=== PATIENT | male | born 1985 | race Caucasian/White ===

== ENCOUNTER 2016-06-10 07:24 | Day surgery (SDC) | payer OTHER ==
[2016-06-10] VITALS (13 sets, daily range): BP systolic 101–150; BP diastolic 41–80; PULSE 64–82; RESP 13–29; O2SAT 95–98
[~2016-06-10] VITALS: Ht 193 cm; Wt 111.3 kg
[~2016-06-10 07:24] MED LIST: CeFAZolin 2 Gm/50 mL D5W IV Premix IV ONE
[2016-06-10] MEDS ORDERED: MetoCLOpramide 5 mg/mL 2 mL Inj ONE (07:25)
[2016-06-10] MEDS ORDERED: fentaNYL-PF 50 mCg/mL 2 mL Inj ONE (07:25)
[2016-06-10] MEDS ORDERED: Ondansetron 2 mg/mL 2 mL Inj ONE (07:25)
[2016-06-10] MEDS ORDERED: Succinylcholine Chloride 20 mg/mL 5 mL Inj ONE (07:25)
[2016-06-10] MEDS ORDERED: Propofol 10,000 mCg/mL 20 mL Inj ONE (07:25)
[2016-06-10] MEDS: Lactated Ringer's 1,000 ML IV SCH ×2 (07:43→12:15)
[2016-06-10] MEDS ORDERED: CeFAZolin Inj 2 gm / 50mL D5W IV ONE (07:50)
[2016-06-10] MEDS ORDERED: CALC-140 PO (07:53)
[2016-06-10] MEDS ORDERED: GLUC500T12 PO (07:53)
[2016-06-10] MEDS ORDERED: OMEG500C PO (07:53)
--- NOTE | 2016-06-10 08:18 | PCM.HPANE ---
Patient Data Date of Service: Jun 10, 2016 Surgeon Admitting Provider: Attending Provider:Aj Nair MD Primary Care Physician:Steph Other Provider:Israel Lovelace Anesthesia Reason for Visit Left Rotator Cuff Tear Ht/WT & BMI Height (Feet): 6 Height (Inches): 4 Weight (Kilograms): 111.76 Body Mass Index 30.00 Allergies Coded Allergies: No Known Allergies (Unverified , 06/06/16) Past Anesthesia History Anesthesia History: Denies:: Abnormal Airway, Anesthesia Reactions, Difficult Intubation, Fam Anesthesia Reaction Diabetes History Hx Diabetes?: No MRSA MRSA: No Medications Hypertension Medication: No Home Meds Incl Beta Hoang: No Reported Medications [place]-3 Fatty Acids (Fish Oil)500 Mg Capsule.dr500 Mg PO 06/10/16 Glucosamine 500 Mg [id number] Mg PO 06/10/16 Calcium Carbonate/Vitamin D3 (Calcium + Vitamin D Tablet)1 Each Tablet1 Each PO 06/10/16 History HEENT History: Denies:: Abnormal Airway Cataracts Difficult Intubation Dysphagia Glaucoma Hearing Problem Sinus Problem TMJ Cardiovascular History: Denies:: AICD Abdominal Aortic Aneurism Cardiac Surgery Chest Pain Congestive Heart Failure Coronary Artery Disease Edema Heart Murmur Hypertension Irregular Heartbeat Pacemaker Hx of Respiratory Problem?: No Respiratory History: Denies:: Asthma COPD Emphysema Oxygen Administration Pneumonia Tuberculosis Use of C-PAP Machine Use of Inhalers / NEBS Hx Neurologic Problems?: No Neurological History: Denies:: Alzheimer's Disease CVA Headaches Multiple Sclerosis Parkinson's Disease Seizures TIA Hx of GI Problems?: No Gastrointestinal History: Denies:: Cirrhosis Gall Bladder Disease Gastroesphageal Reflux Gastrointestinal Bleeding Heartburn Hepatitis Hiatal Hernia Liver Disease Rectal Bleeding Hx of Problems?: No Genitourinary History: Denies:: Kidney Stones Urinary Tract Infection Male Hx: Denies:: Prostate Problems Skin History: Denies:: History Skin Disorders? Pressure Ulcers Hx Musculoskeletal Problems?: Yes Musculoskeletal History: Positive for:: Musculoskeletal Trauma (left shoulder current admission problem) Denies:: Back Injury Fibromyalgia Joint Replacement Osteoarthritis Hx of Psycho/Social Problems?: No Psycho Social History: Denies:: Anxiety Hx Depression Hx Surgeries?: Yes (left knee meniscus) Hx Any Other Health Problems?: Yes Other History: Denies:: Cancer Thyroid Disease History Blood Transfusions: Positive for:: Accept Blood Products? Denies:: Blood Transfusions Hx Diabetes: No Hx Alcohol Use: YesAlcoholic Drinks Per Day: 3-4 drinks monthlyHx Substance Use: NoHave You Smoked inLast 12 mo: No Stop/Bang S-Snoring: Do You Snore Loudly: No T-Tired: feel tired, fatigued: No O-Obsered: Observed not breath: No P-Blood Pressure: treated: No B- Body Mass Index > 35 kg/m2: No A- Age over 50: No N- Neck Large Circumference: No G- Gender Male: Yes RIGOBERTO Total Score: 1 RIGOBERTO Risk Assessment: Low Risk, <3 Yes Risk Assessment Category Category 1A: Patient has history of documented sleep apnea, and HAS NOT received any narcotic, sedative or anesthesia administration during this stay. Category 1B: Patient has history of documented sleep apnea, and HAS received any narcotic , sedative or anesthesia administration during this stay Category 2: Patient has SUSPECTED Obstructive Sleep Apnea, and HAS received any narcotic , sedative or anesthesia administration during this stay. Category 3: Patient has SUSPECTED Obstructive Sleep Apnea and HAS NOT received narcotic, sedative or anesthesia administration during this stay. Category 4: Outpatient in Procedural Areas with known sleep apnea or who screen positive for High Risk via the STOP/BANG questionnaire. Exam Exam General Appearance: Alert, Oriented X3, Cooperative, No Acute Distress HEENT/AIRWAY: MP 1, Neck Movement (FROM), Mouth Opening (>3), Other (tmd>3) Lungs: Clear to Auscultation, Normal Air Movement Heart: Exam Unremarkable, Regular Rate/Rhythm, Normal S1, Normal S2, No Murmurs /Rubs/Gallops Meds/Labs/Diagnostics Admission Meds Current Medications Lactated Ringer's (Lr) 1,000 ml @ 120 mls/hr Q8H20M IV Last administered on 07:43; Start 06/10/16 at 05:00; Stop 06/10/16 at 13:19 Plan Impression Patient chart reviewed, patient interviewed and anesthestic plan with risks, benefits, and alternatives discussed, and informed consent obtained. ASA Physical Status: ASA1 Normal Healthy Anesthetic Plan: GA Bene/Risks/Altern/Consents: Yes HP Complete Prior to Induction: Yes Other Left brachial plexus block request by surgeon for post-op pain. Juan M Andrew MD Jun 10, 2016 08:18
--- NOTE | 2016-06-10 10:30 | PCM.HPANE ---
Patient Data Surgeon Admitting Provider: Attending Provider:Aj Nair MD Primary Care Physician:Steph Other Provider:Israel Lovelace Anesthesia Reason for Visit Left Rotator Cuff Tear Ht/WT & BMI Height (Feet): 6 Height (Inches): 4.00 Weight (Kilograms): 111.3 Body Mass Index 29.00 Allergies Coded Allergies: No Known Allergies (Unverified , 06/06/16) Past Anesthesia History Anesthesia History: Denies:: Abnormal Airway, Anesthesia Reactions, Difficult Intubation, Fam Anesthesia Reaction Diabetes History Hx Diabetes?: No MRSA MRSA: No Medications Hypertension Medication: No Home Meds Incl Beta Hoang: No Reported Medications [place]-3 Fatty Acids (Fish Oil)500 Mg Capsule.dr500 Mg PO 06/10/16 Glucosamine 500 Mg [id number] Mg PO 06/10/16 Calcium Carbonate/Vitamin D3 (Calcium + Vitamin D Tablet)1 Each Tablet1 Each PO 06/10/16 History HEENT History: Denies:: Abnormal Airway Cataracts Difficult Intubation Dysphagia Glaucoma Hearing Problem Sinus Problem TMJ Cardiovascular History: Denies:: AICD Abdominal Aortic Aneurism Cardiac Surgery Chest Pain Congestive Heart Failure Coronary Artery Disease Edema Heart Murmur Hypertension Irregular Heartbeat Pacemaker Hx of Respiratory Problem?: No Respiratory History: Denies:: Asthma COPD Emphysema Oxygen Administration Pneumonia Tuberculosis Use of C-PAP Machine Use of Inhalers / NEBS Hx Neurologic Problems?: No Neurological History: Denies:: Alzheimer's Disease CVA Headaches Multiple Sclerosis Parkinson's Disease Seizures TIA Hx of GI Problems?: No Gastrointestinal History: Denies:: Cirrhosis Gall Bladder Disease Gastroesphageal Reflux Gastrointestinal Bleeding Heartburn Hepatitis Hiatal Hernia Liver Disease Rectal Bleeding Hx of Problems?: No Genitourinary History: Denies:: Kidney Stones Urinary Tract Infection Male Hx: Denies:: Prostate Problems Skin History: Denies:: History Skin Disorders? Pressure Ulcers Hx Musculoskeletal Problems?: Yes Musculoskeletal History: Positive for:: Musculoskeletal Trauma (left shoulder current admission problem) Denies:: Back Injury Fibromyalgia Joint Replacement Osteoarthritis Hx of Psycho/Social Problems?: No Psycho Social History: Denies:: Anxiety Hx Depression Hx Surgeries?: Yes (left knee meniscus) Hx Any Other Health Problems?: Yes Other History: Denies:: Cancer Thyroid Disease History Blood Transfusions: Positive for:: Accept Blood Products? Denies:: Blood Transfusions Hx Diabetes: No Hx Alcohol Use: YesAlcoholic Drinks Per Day: 3-4 drinks monthlyHx Substance Use: NoHave You Smoked inLast 12 mo: No Stop/Bang Treated for Sleep Apnea?: No Do You Have a CPAP Machine?: No S-Snoring: Do You Snore Loudly: No T-Tired: feel tired, fatigued: No O-Obsered: Observed not breath: No P-Blood Pressure: treated: No B- Body Mass Index > 35 kg/m2: No A- Age over 50: No N- Neck Large Circumference: No G- Gender Male: Yes RIGOBERTO Total Score: 1 RIGOBERTO Risk Assessment: Low Risk, <3 Yes Risk Assessment Category Category 1A: Patient has history of documented sleep apnea, and HAS NOT received any narcotic, sedative or anesthesia administration during this stay. Category 1B: Patient has history of documented sleep apnea, and HAS received any narcotic , sedative or anesthesia administration during this stay Category 2: Patient has SUSPECTED Obstructive Sleep Apnea, and HAS received any narcotic , sedative or anesthesia administration during this stay. Category 3: Patient has SUSPECTED Obstructive Sleep Apnea and HAS NOT received narcotic, sedative or anesthesia administration during this stay. Category 4: Outpatient in Procedural Areas with known sleep apnea or who screen positive for High Risk via the STOP/BANG questionnaire. Low Risk, <3 Yes Exam Exam Vital Signs Vital Signs Date Time Temp Pulse Resp B/P Pulse Ox O2 Delivery O2 Flow Rate FiO2 06/10/16 08:45 36.6 74 18 150/80 97 Room Air General Appearance: Oriented X3 HEENT/AIRWAY: MP 2 Lungs: Normal Air Movement Heart: Regular Rate/Rhythm Meds/Labs/Diagnostics Admission Meds Current Medications Lactated Ringer's (Lr) 1,000 ml @ 120 mls/hr Q8H20M IV Last administered on t 07:43; Start 06/10/16 at 05:00; Stop 06/10/16 at 13:19 Plan Impression Patient chart reviewed, patient interviewed and anesthestic plan with risks, benefits, and alternatives discussed, and informed consent obtained. NPO Status: water at 0530 ASA Physical Status: ASA1 Normal Healthy Anesthetic Plan: GA Bene/Risks/Altern/Consents: Yes HP Complete Prior to Induction: Yes Kailash Perez MD Jun 10, 2016 10:30
[2016-06-10] MEDS ORDERED: Ketorolac 15 mg/mL Inj IVPUSH ONE (10:40)
[2016-06-10] MEDS ORDERED: HYDROcodone-APAP 5-325 mg Tablet PO PRN (10:40)
[2016-06-10] MEDS ORDERED: Lactated Ringer's 500 ML IV PRN (11:10)
[2016-06-10] MEDS ORDERED: Phenylephrine 10,000 mCg/mL Inj IVPUSH PRN (11:10)
[2016-06-10] MEDS ORDERED: HYDROmorphone 1 mg/mL Inj IVPUSH PRN (11:10)
[2016-06-10] MEDS ORDERED: Lactated Ringer's 1,000 ML IV SCH (11:10)
[2016-06-10] MEDS ORDERED: Ondansetron 2 mg/mL 2 mL Inj IVPUSH PRN (11:10)
[2016-06-10] MEDS ORDERED: EPHEDrine Sulfate 50 mg/mL Inj IVPUSH PRN (11:10)
[2016-06-10] MEDS ORDERED: MetoCLOpramide 5 mg/mL 2 mL Inj IVPUSH PRN (11:10)
[2016-06-10] MEDS ORDERED: Labetalol 5 mg/mL 4 mL Inj IV PRN (11:10)
[2016-06-10] MEDS ORDERED: fentaNYL-PF 50 mCg/mL 2 mL Inj IVPUSH PRN (11:10)
[2016-06-10] MEDS ORDERED: Dexamethasone 4 mg/mL Inj IVPUSH PRN (11:10)
[2016-06-10] MEDS ORDERED: Ropivacaine-PF 0.5% 30 mL Inj INFILTRATE ONE (12:52)
[2016-06-10] MEDS ORDERED: Lactated Ringer's 1,000 ML IV ONE (12:52)
--- NOTE | 2016-06-10 12:52 | PCM.ORTHOP ---
Orthopedic Operative Report Date of Service: Jun 10, 2016 Pre Operative Diagnosis Left shoulder rotator cuff Post Operative Diagnosis Left shoulder rotator cuff tear Procedure Left shoulder arthroscopy, rotator cuff repair, partial synovectomy Surgeon Surgeon: Aj Nair MD Assistants: Gisele Tellez Indication for Procedure Left shoulder rotator cuff tear Findings Partially torn full-thickness subscapularis tear, moderate synovitis Details of Procedure EXCAVATOR OPERATOR SURGEON: During the operation, the services of physician life enrichment assistant were medically indicated and necessary to provide exposure of the operative site for the surgical procedure and to maintain the limb in a proper position to carry out the operation safely and efficiently. Without the qualified laboratory chemical assistant being present, it would have extended the operative procedure and made the procedure technically more difficult to perform. INDICATIONS: The patient is Manpreet Mcgowan who is a 31-year-old male with left subscapularis tear after weightlifting. He is failed conservative treatment and elected for subscapularis repair. The risks, benefits, and alternatives of surgery were discussed with the patient. The risks included but were not limited to infection, bleeding, damage to vessels and nerves, loss of motion, continued pain, complications due to anesthesia including myocardial infarction , stroke, , etc. The patient stated understanding of the nature of the surgical procedure and gave written and verbal consent to proceed. PROCEDURE: The patient was brought into the operating room and placed supine on the operating room table. A supraclavicular block was placed in the left shoulder for postoperative pain management, followed by the administration of general anesthesia. . The patient was then placed into the lateral decubitus position with the right side up. An axillary role was placed and the legs were padded as necessary to avoid pressure points. The patient was maintained in position with a beanbag evacuation device. A thorough examination of the left shoulder under anesthesia was performed. The patient had 150 degrees of forward elevation and 120 degrees of abduction. In 90 degrees of abduction there was 60 degrees of external rotation and 50 degrees of internal rotation. The shoulder was stable to load-shift testing. The left upper extremity was then prepped and draped in the usual fashion. The arm was suspended with a well-padded sleeve with eight/ten pounds of balanced suspension in the arthroscopic position. Removing A standard posterior portal was made inferior and medial to the posterior corner of the acromion. The incision was made only through skin. The trocar was advanced through the soft tissue with a blunt-tipped obturator. This was inserted into the glenohumeral joint without difficulty. The 4 mm arthroscope was placed through the cannula and attached to the video monitor system. Inflow was achieved using the arthroscopic pump. The pressure was maintained at 35-40 mm of mercury throughout the entire procedure. Once the arthroscope confirmed visualization within the shoulder joint, it was advanced anteriorly into the rotator interval beneath the biceps tendon. A Wissinger bernard was then used to create the anterior portal from inside-out. A second anterior stab wound incision was made only through skin and an anterior cannula was placed. A routine arthroscopic survey was begun. Survey: Full-thickness superior portion of the subscapularis torn with partial tearing of the inferior portion The arm was then placed in the bursoscopy position. Complex surgical procedure: This was an extremely complex surgical procedure which took approximately 30-40 % longer to complete than a standard repair. Without the use of a qualified enrichment assistant, this surgical procedure would have taken even considerably longer and been unable to be performed arthroscopically. Subscapularis helix repair The attention was directed towards subscapularis repair. A motorized shaver was introduced and extensive debridement was carried out debriding the articular side of the subscapularis, as well as the rotator interval allowing visualization of tendon insertion. Under arthroscopic visualization, a suture lasso was used to shuttle a #2 FiberWire in a [id number] fashion and a swivel lock 4.75 anchor was then inserted in the humeral head with excellent fixation purchase. Although there was a cyst on the MRI, the bone tunnel was solid prior to insertion of the anchor. This reduced the subscapularis back to the humeral head. The subscapularis and humeral head moved well as a unit, there was no subcoracoid impingement. In light of the significant persistent longitudinal split tear of the Subscapularis, the decision was made to proceed with [id number] repair of the subscapularis. Using a suture lasso, a #1 PDS stitch was passed across the rotator cuff, subscapularis. This was then sequentially tied using a [place] slider knot and alternating half hitches. This gave excellent loop and knot security and closed the longitudinal split tear well. Within the subacromial space there was no marked fraying on the undersurface of the coracoacromial ligament consistent with impingement(last pic). There was significant synovitis which was debrided with a RF wand and shaver. The rotator cuff appeared to be intact from the subacromial space. The arm was placed through range of motion and the rotator cuff and humeral head moved well as a unit. There was no further evidence for impingement. The subacromial space was irrigated with an additional 500 mL lactated Ringer solution. Excess fluid was drained. The arm was placed through a range of motion and the rotator cuff and humeral head moved well as a unit. There was no further evidence of impingement. The subacromial space was irrigated with an additional liter of lactated Ringer s solution and excess fluid was drained. The arthroscopic portals were closed with #4-0 Nylon and Steri-Strips. A dry sterile dressing was applied, followed by a neutral rotation sling. The patient was awakened in the operating room and transported to the recovery room in satisfactory condition. The patient appeared to tolerate the procedure well. There were no complications noted. Grafts, Implants: Implants-See Implant Record Complications There were no periprocedural complications identified. Condition Stable Anesthetic Administered: GA Catheters: None Output, Estimated Blood Loss: 5 Blood Admin during surgery: No Surgical Cast or Splint: Shoulder Immobilizer Surgical Specimen Removed: No Specimen sent to Pathology: No copies to: Aj Nair MD, Christopher L MD Jun 10, 2016 12:52
--- NOTE | 2016-06-10 13:43 | PCM.ANEP2 ---
Post Anesthesia Evaluation ASA/CMS Post Anesthesia VS in Patient's Normal Range?: Yes Resp Stable; Airway Patent?: Yes CV Function & Hydration Stable: Yes Mental Status Recovered?: Yes Pain control Satisfactory?: Yes N/V Control Satisfactory?: Yes Kailash Perez MD Jun 10, 2016 13:43
--- NOTE | 2016-06-10 13:43 | PCM.ANEP1 ---
Post Anesthesia Phase 1 PACU Phase 1 Assessment Date of Service: Jun 10, 2016 Vital Signs Vital Signs Date Time Temp Pulse Resp B/P Pulse Ox O2 Delivery O2 Flow Rate FiO2 06/10/16 13:35 36.3 77 13 122/59 95 Room Air 06/10/16 13:30 72 19 121/61 95 Room Air 06/10/16 13:15 36.1 80 16 116/66 98 Room Air 06/10/16 13:10 69 21 109/55 96 Simple Mask 8 06/10/16 13:05 70 29 113/45 96 Simple Mask 8 06/10/16 13:00 70 21 113/45 98 Simple Mask 8 06/10/16 12:55 64 20 103/41 97 Simple Mask 8 06/10/16 12:50 36.3 65 20 101/46 95 Simple Mask 8 06/10/16 08:45 36.6 74 18 150/80 97 Room Air Anesthetic Administered: GA Level of Alertness: Awake, talking Airway Device: Oralpharangeal Airway Lungs: Normal Air Movement Kailash Perez MD Jun 10, 2016 13:43
== END 2016-06-10 23:59 | disposition home or self-care (01) ==
LOC: SAS 07:24
PROVIDERS: ATTEND Orthopaedic Surgery
PROC: 0LQ24ZZ Repair Left Shoulder Tendon, Percutaneous Endoscopic Approach (ICD-10-PCS; principal; 2016-06-10 10:00)
DX: S46.012A Strain of muscle(s) and tendon(s) of the rotator cuff of left shoulder, initial encounter (principal); X50.0XXA Overexertion from strenuous movement or load, initial encounter
CPT/HCPCS: 29827; 76942; C1713; J0330; J0690; J1885; J2250; J2405; J2765; J2795; J3010; J7120